=== PATIENT | male | born 1995 | race African-American/Black ===

== ENCOUNTER 2017-10-28 16:06 | Inpatient (IN) | payer MEDICAID ==
[~2017-10-28] VITALS: Ht 193 cm; Wt 108.9 kg
[2017-10-28 17:07] LABS: CLARITY URINE CLEAR (CLEAR); COLOR URINE DARK YELLOW (YELLOW); KETONES URINE 1+ (NEGATIVE); LEUKOCYTE ESTERASE URINE NEGATIVE (NEGATIVE); NITRITE URINE NEGATIVE (NEGATIVE); OCCULT BLOOD URINE NEGATIVE (NEGATIVE); PH URINE 5.5 (4.5-8.0); PROTEIN URINE 1+ (NEGATIVE); SPECIFIC GRAVITY URINE 1.044 (1.005-1.030)
[2017-10-28] MEDS ORDERED: ACETAMINOPHEN 325MG TABLET PO ONE (19:45)
[2017-10-28 19:53] LABS: BASOPHILS % 0.4 % (0.0-2.0); EOSINOPHILS % 0.1 % (0.0-5.0); HEMATOCRIT. 44.5 % (42.0-52.0); HEMOGLOBIN. 15.2 g/dL (14.0-18.0); MEAN CORPUSCULAR HEMOGLOBIN 29.9 pg (28.0-32.0); MEAN CORPUSCULAR VOLUME 87.5 fL (80.0-94.0); MEAN PLATELET VOLUME 9.1 fl (7.4-10.4); MONOCYTES % 8.2 % (2.0-8.0); NEUTROPHILS % 81.3 % (40.0-76.0); PLATELET 176 x1000/uL (130-400); RED BLOOD CELL COUNT 5.08 mill/uL (4.7-6.1); RED CELL DISTRIBUTION WIDTH 13.3 % (11.6-14.6)
[2017-10-28 19:55] LABS: CHLORIDE 100 mEq/L (98-107)
[2017-10-28 19:58] LABS: INR 1.1; PROTHROMBIN TIME 11.4 sec (9.4-11.6)
[2017-10-28 20:01] LABS: BETA HYDROXYBUTYRATE 0.3 mMol/L (0.0-0.3)
[2017-10-28] MEDS ORDERED: SODIUM CHLORIDE 0.9% 1,000 ML IV ONE (23:45)
[2017-10-29 03:10] VITALS: BP 114/72
[2017-10-29 04:00] VITALS: BP 114/72
[2017-10-29] MEDS ORDERED: DEXTROSE 50% WATER 50ML SYRINGE IV PRN (07:30)
[2017-10-29] MEDS ORDERED: ONDANSETRON 4MG ODT PO PRN (07:45)
[2017-10-29 08:30] VITALS: BP 103/73
[2017-10-29] MEDS ORDERED: PANTOPRAZOLE 40MG DR TABLET PO SCH (09:00)
[2017-10-29 09:23] LABS: CHLORIDE 103 mEq/L (98-107)
[2017-10-29 09:30] LABS: LDL CHOLESTEROL 96 mg/dL (5-100)
[2017-10-29 09:32] LABS: HDL CHOLESTEROL 59 mg/dL (40-59)
[2017-10-29 09:33] LABS: CREATINE KINASE 85 IU/L (39-308)
[2017-10-29 09:34] LABS: CREATINE KINASE MB FRACTION < 0.5 ng/mL (0.5-3.6)
[2017-10-29] MEDS ORDERED: ACETAMINOPHEN 325MG TABLET PO PRN (10:00)
[2017-10-29] MEDS ORDERED: DOCUSATE SODIUM 100MG CAPSULE PO PRN (10:00)
[2017-10-29] MEDS ORDERED: ONDANSETRON HCL 4MG/2ML VIAL IV PRN (10:00)
[2017-10-29] MEDS ORDERED: SODIUM CHLORIDE 0.9% 1,000 ML IV SCH (10:15)
[2017-10-29 12:00] VITALS: BP 116/75
[2017-10-29] MEDS ORDERED: BLOOD SUGAR DIAGNOSTIC STRIP TEST SCH (12:10)
[2017-10-29] MEDS ORDERED: INSULIN REGULAR (HUMULIN R) 300UNITS/3ML SUBCUT ONE (12:15)
[2017-10-29] MEDS ORDERED: INSULIN LISPRO 100 UNITS/ML SUBCUT SCH ×2 (12:39→12:40)
[2017-10-29 14:36] VITALS: BP 116/75
== END 2017-10-29 15:40 | disposition home or self-care (01) | DRG 425 ==
LOC: ER 16:37 → 8WST 10-29 00:57 → EDBEDREQ 10-29 01:51 → ENRESERV 10-29 02:38
PROVIDERS: ADMIT Internal Medicine; ATTEND Internal Medicine
DX: E87.6 Hypokalemia (principal); E83.51 Hypocalcemia; E11.9 Type 2 diabetes mellitus without complications; K21.9 Gastro-esophageal reflux disease without esophagitis; Z79.4 Long term (current) use of insulin; R63.4 Abnormal weight loss; Z83.3 Family history of diabetes mellitus; Z68.29 Body mass index [BMI] 29.0-29.9, adult
CPT/HCPCS: 36415; 71045; 74176; 80048; 80053; 80061; 81003; 82010; 82550; 82553; 82962; 83036; 83880; 84443; 84484; 85025; 85610; 93005; 96360; 99285; J1815; J7030